=== PATIENT | female | born 1945 | race Caucasian/White ===

== ENCOUNTER → 2016-06-28 | Outpatient (CLI) | payer MEDICARE, OTHER | LOC: MW.CHIM 08:00 | PROVIDERS: ATTEND Internal Medicine | DX: R07.89 Other chest pain (principal); I10 Essential (primary) hypertension; E11.9 Type 2 diabetes mellitus without complications; E78.4 Other hyperlipidemia | CPT/HCPCS: G0463 ==

== ENCOUNTER → 2016-07-19 | Outpatient (CLI) | payer MEDICARE, OTHER ==
[2016-07-19 10:22] LABS: CHLORIDE,CL 106 mmol/L (98-110); SODIUM,NA 144 mmol/L (136-146)
--- NOTE | 2016-07-19 12:20 | CR ---
EXAMINATION: Two-view chest (PA and Lateral views). HISTORY: Pleurodynia FINDINGS: The trachea is midline. The cardiomediastinal silhouette is within normal limits. No pulmonary infil trates, effusions or pneumothorax. Mild chronic interstitial prominence. Mild degenerative changes within the thoracic spine. IMPRESSION: No acute cardiopulmonary process.
== END ==
LOC: MW.CHIM 09:23
PROVIDERS: ATTEND Internal Medicine
DX: R07.81 Pleurodynia (principal); I10 Essential (primary) hypertension; E11.9 Type 2 diabetes mellitus without complications; Z85.528 Personal history of other malignant neoplasm of kidney; E11.65 Type 2 diabetes mellitus with hyperglycemia; C64.9 Malignant neoplasm of unspecified kidney, except renal pelvis; F41.9 Anxiety disorder, unspecified
CPT/HCPCS: 36415; 71020; 71020-26; 80053; 83036; 85025; 88104; 99215

== ENCOUNTER → 2016-08-20 | Outpatient (CLI) | payer MEDICARE, OTHER ==
--- NOTE | 2016-08-22 08:38 | BHI ---
SERVICE DATE: 08/21/2016 PATIENT #: [id number] #: NOT DICTATED IDENTIFICATION: Jayleen is a 71-year-old female, who is here today for evaluation. She is referred to me by Dr. Kumar. CURRENT MEDICATIONS: Paxil 20 mg a day, trazodone 50 mg at bedtime, lorazepam 0.5 mg t.i.d. p.r.n. She rarely uses this, in the last 2 or 3 months she has used it twice. ALLERGIES: She has allergies to Augmentin and latex. CHIEF COMPLAINT: "I don't wanna get up." HISTORY OF PRESENT ILLNESS: Jayleen states that she has been gradually getting more and more depressed, there has been a series of very big stressors in her life. Her granddaughter was murdered in June. Her 91-year-old mom lives with her and so most of Jayleen's time is taking care of her mom and so she does not get out of the house much. She has 1 sister who has stage IV lung cancer, so that is another stressor on her. Her mood has been down. She has been on the Paxil for about 20 years and she just does not feel that it is really doing much anymore. Symptoms she significantly endorses, no energy, cannot concentrate, sleeps too much, feels hopeless, sadness, less enjoyment of life, feels like a failure, cries, loss of interest in her social activities, disappointed in herself, unsteady feelings, thoughts about dying, fear of going crazy or losing control, fear of being embarrassed or humiliated, fears of speaking in public, afraid of choking in public, hand trembling in the presence of others, fears of speaking in any social situations, persistent ideas, she cannot get out of her mind, recurrent thoughts, socially withdrawn, thoughts about how her life has changed permanently, outbursts of irritability, muscle tension, aches, and pains, restlessness, tires very easily. She said she feels trapped at home. Her mom does not get around very well and mom has dementia. She has no interest in cooking or cleaning and then she feels very guilty for feeling that way. She said this really started after she retired in April of 2015, but increased in severity after her granddaughter was murdered in June. Mornings and early afternoons are the worst time of her day. She does not really identify anything that seems to help. Her PHQ-9 score is 13. She does deny suicidal or homicidal ideation. PAST PSYCHIATRIC HISTORY: She saw Dr. Gomes after her divorce, I think in 1984. She said that was a very stressful time for her. She has not been on any other medications or has ever been hospitalized or has ever had a suicide attempt. SOCIAL HISTORY: Born in [place], raised primarily in [place] by her parents. Dad in 1970. She has 2 sisters, who are younger than her. She is a registered nurse. She was and in 1984. She has 2 sons, who are grown. She retired from her job at [employer] here in April of 2015. She cares for her mom, who has dementia. FAMILY HISTORY: She said the only thing she can identify in the family that runs is some anxiety, people are worriers. CHEMICAL USAGE HISTORY: She has never had trouble with alcohol or drugs. She said rarely she may have 1 drink. MEDICAL HISTORY: Her primary care provider is Dr. Kumar. She has had a few surgeries in her life. She has had a cholecystectomy and nephrectomy in 2005. Hysterectomy and uterine suspension. REVIEW OF SYSTEMS: ALLERGIES AND IMMUNE: The only thing she has allergies to is latex and Augmentin. CARDIOVASCULAR: She has hypertension. RESPIRATORY: She denies any problems. EARS, NOSE, OR THROAT: She denies any problems. EYES: She does wear corrective lenses. GASTROINTESTINAL: She has hypercholesterolemia. GENITOURINARY: She denies any problems. MUSCULOSKELETAL: She does have some arthritis and she takes Tylenol, which really does not do much of anything. She also states that she was told recently that she has some very mild mitral regurgitation. NEUROLOGICAL: She has restless legs syndrome and history of headaches. ENDOCRINE: She has diabetes and hypothyroidism years ago, but currently has diabetes. INTEGUMENTARY: Denies any problems. HEMATOLOGY: Denies problems. CONSTITUTIONAL: She denies any recent illnesses or fevers. Her last A1c was 8.1. MEDICATIONS: Other medications besides her Paxil and trazodone include amlodipine, baby aspirin, atorvastatin, glimepiride, Lantus insulin, ropinirole, tramadol which she uses very rarely, Victoza. PHYSICAL EXAMINATION: VITAL SIGNS: Blood pressure is 124/76, heart rate 95, respirations 18, temperature is 97.5, height 62 inches, weight is 182 pounds. GENERAL APPEARANCE: Jayleen is a very pleasant lady. She is well developed, well nourished, well groomed woman, who appears her stated age. Her muscle strength and tone appears equal bilaterally. Gait and station are normal. PSYCHIATRIC: Speech is clear and appropriate, coherent. Thought processes are logical. I do not see any pressured speech or tangential speech. Associations are intact. She denies any hallucinations. I do not see any delusions. Affect is flat. Her mood is depressed. Insight and judgment appear intact. Eye contact is good. MENTAL STATUS EXAM: She is alert and oriented x3. Recent and remote memory appear intact. Attention span appears to be good. Language is good. Fund of knowledge is good for her developmental age. DIAGNOSES: [place] I: Recurrent depression. Current episode moderate, F33.1; anxiety, F41.8. [place] II: No diagnosis. [place] III: She has several medical problems including diabetes, hypertension, hypercholesterolemia, restless legs syndrome, headaches. [place] IV: Stressors. Big stressors have been socially shut in with taking care of her mother and the of her granddaughter. [place] V: Current Global Assessment of Functioning score 65. TREATMENT PLAN: Jayleen has been on the Paxil for a long time now, so we discussed our various options. We could try to go up on the Paxil or we could get rid of it and try something new. She feels like she would like to try something new. She just has not had any benefit whatsoever with the Paxil. So, I am going to wean her off the Paxil. She will drop down to 10 mg a day for the next 5 days and try to go down to 5 mg a day for 5 days, and then just discontinue it. At the same time here, I am going to have her start Pristiq 25 mg a day. We discussed side effects and things that she should expect or may experience with the starting of the Pristiq. We also discussed the genetic testing and she is very much interested in that. I am going to see her back in about 3 to 4 weeks. If she has any problems before that, I encouraged her to call. /[id number]
== END ==
LOC: MW.CHIM 11:53
PROVIDERS: ATTEND Internal Medicine
DX: E11.9 Type 2 diabetes mellitus without complications (principal); E78.5 Hyperlipidemia, unspecified; E11.65 Type 2 diabetes mellitus with hyperglycemia; I10 Essential (primary) hypertension; F41.9 Anxiety disorder, unspecified
CPT/HCPCS: 36415; 83036; 99214

== ENCOUNTER → 2016-08-21 | Outpatient (CLI) | payer MEDICARE, OTHER | PROVIDERS: ATTEND Nurse Practitioner Family | DX: F33.1 Major depressive disorder, recurrent, moderate (principal); F41.8 Other specified anxiety disorders | CPT/HCPCS: 90792 ==

== ENCOUNTER → 2016-08-27 | Outpatient (CLI) | payer MEDICARE, OTHER ==
--- NOTE | 2016-08-28 10:15 | CR ---
EXAMINATION: Right knee HISTORY: Pain COMPARISON: None TECHNIQUE: 4 views FINDINGS/IMPRESSION: There is no acute osseous abnormality, dislocation, or fracture identified. Bon e mineralization and joint spaces appear normal. No soft tissue swelling or joint effusion.
== END ==
LOC: MW.CHORTHO 08:01
PROVIDERS: ATTEND Orthopaedic Surgery
DX: M25.561 Pain in right knee (principal)
CPT/HCPCS: 73564-26-RT; 73564-RT; G0463

== ENCOUNTER → 2016-09-03 | Outpatient (CLI) | payer MEDICARE, OTHER ==
--- NOTE | 2016-09-03 14:53 | MR ---
EXAMINATION: MRI of the right knee HISTORY: Pain COMPARISON: None TECHNIQUE: Multiplanar and multisequence images obtained of the right knee without contrast. FINDINGS: The visualized quadriceps and patellar tendons appear normal. The ACL and the PCL are inta ct. The medial and lateral collateral ligament complexes are normal. The medial and lateral menisci are normal. There is moderate articular cartilage thinning within the patellofemoral compartment wit h mild subchondral edema. There is also mild articular cartilage thinning within the medial compartm ent. There is a trace joint effusion and Henning's cyst. No suspicious bone marrow signal changes iden tified. The popliteal tendon appears normal. Otherwise no abnormalities noted within the popliteal fossa. IMPRESSION: 1. Moderate patellofemoral and mild medial compartment chondromalacia.
--- NOTE | 2016-09-04 16:20 | BTN ---
SERVICE DATE: 09/04/2016 PATIENT #: [id number] #: NOT DICTATED IDENTIFICATION: Sudha is a 71-year-old female, who is here today for a followup. I last saw her about 2 weeks ago. CURRENT MEDICATIONS: Pristiq 50 mg a day. ALLERGIES: She has allergies to Augmentin and latex. CHIEF COMPLAINT: "I am doing okay." HISTORY OF PRESENT ILLNESS: I saw Sudha about 2 weeks ago for some significant depressive symptoms and some grieving symptoms. She had been on Paxil for quite a while, but it had quit working I think quite a few months ago so we stopped the Paxil and started her on the Pristiq 50 mg a day. She said she is tolerating it. She said she has a little bit of stomach upset, but not bad. She thinks she is doing okay. Her PHQ-9 score is 11. RUBIO-7 score is 10. One of her big stressors has been her granddaughter was murdered in June by an ex-boyfriend and she said she got a word yesterday that they planned a tree in her memory and she said so it kind of brought things up again and it was a little bit tough for her, but she said she is doing okay. She is pretty much housebound, because she takes care of her mom and she is a primary caregiver. Her mom does not get around to well. REVIEW OF SYSTEMS: Sudha has diabetes and she also has elevated cholesterol and hypertension. PHYSICAL EXAMINATION: VITAL SIGNS: Weight is 181.2, height is 62 inches, temp is 97.3, heart rate is 85, respirations 20, and blood pressure 137/78. GENERAL APPEARANCE: Sudha is very well groomed, and a very pleasant lady. She appears her age. Muscle strength and tone appear equal bilaterally. Gait and station are normal. Speech is clear and appropriate. She is soft spoken. Thought processes are logical. I do not see any pressured speech. I do not see any tangential speech. I do not see any delusions. She denies hallucinations. Her mood is okay and her affect seems a little brighter today. Insight and judgment, I think, are very good. MENTAL STATUS EXAM: She is alert and oriented x3. Recent and remote memory appear intact. Attention span appears within normal limits. Language is good and fund of knowledge appears adequate for developmental age. DIAGNOSES: [place] I: Major depression, recurrent, current episode, mild to moderate, F33.0; and anxiety, F41.8. [place] II: No diagnosis. [place] III: She has diabetes, hypertension, and hyperlipidemia. [place] IV: Stressors, granddaughter's is probably one of the biggest stressors on Pat right now. [place] V: Current Global Assessment of Functioning score 68. TREATMENT PLAN: She has only been on the Pristiq 50 mg not even quite two weeks so I want her to continue on that for at least another 2 weeks. She is going to get the [employer] testing done. I think that is a good idea. So she will get the testing done then I want her to reschedule with me in about 3 weeks. We will do the conference call with the researcher and we will follow up with her medications at that time. If she has any problems before that, I encouraged her to call. /[id number]
== END ==
LOC: MW.MRI 12:21
PROVIDERS: ATTEND Orthopaedic Surgery
DX: M25.561 Pain in right knee (principal); M22.41 Chondromalacia patellae, right knee
CPT/HCPCS: 73721-26-RT; 73721-RT

== ENCOUNTER → 2016-09-05 | Outpatient (CLI) | payer MEDICARE, OTHER | LOC: MW.CHORTHO 08:00 | PROVIDERS: ATTEND Orthopaedic Surgery | DX: M17.11 Unilateral primary osteoarthritis, right knee (principal); M71.21 Synovial cyst of popliteal space [Baker], right knee | CPT/HCPCS: G0463 ==

== ENCOUNTER 2017-12-09 12:05 | Emergency (ER) | payer MEDICARE, OTHER ==
[2017-12-09 12:35] VITALS: BP 151/82
[2017-12-09] MEDS ORDERED: traMADol 50 MG Tab PO ONE (12:36)
--- NOTE | 2017-12-09 13:47 | EDM.PDOC ---
ED HPI GENERAL MEDICAL PROBLEM - General Chief Complaint: Head Injury Stated Complaint: FALL Time Seen by Provider: 12/09/17 12:12 Source of Information: Reports: Patient History Limitations: Reports: No Limitations - History of Present Illness INITIAL COMMENTS - FREE TEXT/NARRATIVE: HISTORY AND PHYSICAL: History of present illness: Patient is a 72-year-old female who presents to the emergency room today with complaints of right sided facial pain after fall. She states she was in her garage doing some boxes when she tripped and fell landing on the cement floor. She denies any loss of consciousness. Does have bruising around the right orbit. Any neck, back, trunk or extremity pain. Review of systems: As per history of present illness and below otherwise all systems reviewed and negative. Past medical history: As per history of present illness and as reviewed below otherwise noncontributory. Surgical history: As per history of present illness and as reviewed below otherwise noncontributory. Social history: No reported history of drug or alcohol abuse. Family history: As per history of present illness and as reviewed below otherwise noncontributory. Physical exam: General: Well-developed and well nourished 9-year-old female. Alert and oriented. Nontoxic appearing and in no acute distress. HEENT: Soft tissue swelling around the right eye with bruising, normocephalic, pupils equal and reactive bilaterally, negative for conjunctival pallor or scleral icterus, no intraoccular intrapment, cardinal walsh of gaze intact, mucous membranes moist, throat clear, neck supple, nontender, trachea midline. No drooling or trismus noted. No meningeal signs Lungs: Clear to auscultation, breath sounds equal bilaterally, chest nontender. Heart: S1S2, regular rate and rhythm without overt murmur Abdomen: Soft, nondistended, nontender. Negative for masses or hepatosplenomegaly. Negative for costovertebral tenderness. Pelvis: Stable nontender. Genitourinary: Deferred. Rectal: Deferred. Skin: Swelling and bruising noted around the right eye, not affecting the globe. Otherwise skin is intact, warm, dry. No lesions or rashes noted. Extremities: Moves all per self without difficulty or deficets, ambulatory into the ED without complaints, negative for cords or calf pain. Neurovascular unremarkable. C-Spine/Back: No pinpoint vertebral tenderness upon palpation. No crepitus, step -offs or obvious deformities. Patient is fully ambulatory into the emergency room with an even and steady gait. She denies any urinary or fecal incontinence. She is able to walk on heels and toes without difficulty. Denies any numbness or tingling to her distal extremities. Neuro: Awake, alert, oriented. Cranial nerves II through XII unremarkable. Cerebellum unremarkable. Motor and sensory unremarkable throughout. Exam nonfocal. Notes: CT of the maxillofacial shows a right orbital fracture with a 4?5 millimeter defect. The right ocular globe is intact. Right periorbital edema. Dr Trivedi, ENT in [facility], was contacted at this case. He is aware of the CT findings and the patient presentation. He states he'll see the patient on Friday and since the patient has a amoxicillin allergy he would like her placed on a Z-Declan. We'll give her Mil[place] for pain management. We discussed supportive care measures at home. Signs and symptoms that would prompt her to return to the emergency room were reviewed and discussed. Both patient and son at the bedside voice understanding and are agreeable to plan of care. Denies any further questions or concerns at this time. Diagnostics: CT, maxillofacial CT Therapeutics: Tramadol Prescription: Janak Blum (#30) Impression: Orbital Fracture, Right Head Injury Plan: 1. Please take your antibiotic as directed 2. Avoid blowing your nose or any activities that can increase pressure in your head 3. Tylenol and/or ibuprofen as needed for pain management. [place] has been provided for moderate to severe pain. This medication does cause drowsiness so do not take it will driving her needing to be functioning outside of the house. 4. Dr Trivedi, Ear Nose & Throat Specialist in [place] has agreed to see you. Appointment is Friday (December 12) at 12:15pm. Return to the ED as needed and as discussed. Definitive disposition and diagnosis as appropriate pending reevaluation and review of above. Onset: Today Duration: Minutes: Location: Reports: Face Right eye Pain Score (Numeric/FACES): 8 - Related Data Allergies Allergy/AdvReac Type Severity Reaction Status Date / Time latex Allergy rashes Verified 04/03/16 17:54 potassium clavulanate Allergy Headache Verified 04/03/16 17:54 [From Augmentin] amoxicillin trihydrate AdvReac Headache Verified 04/03/16 17:54 [From Augmentin] Home Meds: Home Meds PARoxetine [Paxil] 40 mg PO BEDTIME 09/09/13 [History] rOPINIRole HCl [Requip] 1 mg PO BEDTIME 09/09/13 [History] Aspirin 81 mg PO DAILY 06/03/15 [History] Insulin Aspart [NovoLOG] 0 units SQ ASDIRECTED 06/03/15 [History] Insulin Glarg,Human.Rec.Analog [LantUS Solostar] 55 units SQ BEDTIME 06/03/15 [ History] Liraglutide [Victoza] 1.8 mg SQ BEDTIME 06/03/15 [History] atorvaSTATin [Lipitor] 40 mg PO BEDTIME 06/03/15 [History] Ascorbic Acid/Bioflavonoids [Vit C-Bioflavonoids SA] 1,000 mg PO DAILY 07/11/15 [History] Glimepiride 4 mg PO DAILY 04/03/16 [History] amLODIPine Besylate/Benazepril [Lotrel 10-20 mg Capsule] 1 each PO DAILY [History] traZODone 50 mg PO BEDTIME 04/03/16 [History] Past Medical History HEENT History: Reports: Allergic Rhinitis, Glaucoma, Impaired Vision, Macular Degeneration Other HEENT History: wears glasses Cardiovascular History: Reports: Heart Murmur, High Cholesterol, Hypertension Respiratory History: Reports: None Gastrointestinal History: Reports: GERD Genitourinary History: Reports: Renal Calculus Other Genitourinary History: right radical nephrectomy 2005 due to renal cell carcinoma. Same year before that she had stone removal on the left side (that is how asymptomatic kidney cancer was discovered) ASSISTIVE TECHNOLOGY TRAINER History: Reports: Other ASSISTIVE TECHNOLOGY TRAINER History: uterine suspension Musculoskeletal History: Reports: Fracture, Osteoarthritis, Other (See Below) Other Musculoskeletal History: hx of restless leg syndrome, arthritis in hands and wrists,fx of right elbow,both ankles,right foot, surgery to repair muscles in left foot. painful right shoulder? rotator cuff Neurological History: Reports: None Psychiatric History: Reports: Anxiety, Depression Endocrine/Metabolic History: Reports: Diabetes, Type II, Obesity/BMI 30+ Hematologic History: Reports: None Immunologic History: Reports: None Oncologic (Cancer) History: Reports: Renal Dermatologic History: Reports: Other (See Below) Other Dermatologic History: occas gets a pimple like rash on face and back - Infectious Disease History Infectious Disease History: Reports: Chicken Pox, Mononucleosis - Past Surgical History Head Surgeries/Procedures: Reports: None Respiratory Surgical History: Reports: None GI Surgical History: Reports: Appendectomy, Cholecystectomy Female Surgical History: Reports: Section, Hysterectomy, Kidney stone extraction, Nephrectomy, Other (See Below) Neurological Surgical History: Reports: None Oncologic Surgical History: Reports: Other (See Below) Social & Family History - Family History Family Medical History: Noncontributory Cardiac: Reports: Heart Failure Endocrine/Metabolic: Reports: Diabetes, type II Oncologic: Reports: Colon, Lung - Tobacco Use Smoking Status *Q: Never Smoker Second Hand Smoke Exposure: No - Caffeine Use Caffeine Use: Reports: Coffee - Recreational Drug Use Recreational Drug Use: Yes Drug Use in Last 12 Months: Yes Recreational Drug Type: Reports: Marijuana/Hashish Recreational Drug Use Frequency: Rarely ED ROS GENERAL - Review of Systems Review Of Systems: ROS reveals no pertinent complaints other than HPI. ED EXAM, HEAD INJURY - Physical Exam Exam: See Below (See dictation) Course - Vital Signs Last Recorded V/S: Last Vital Signs Temp 96.9 F 12/09/17 12:16 Pulse 90 12/09/17 12:16 Resp 17 12/09/17 12:16 BP 151/82 H 12/09/17 12:16 Pulse Ox 93 L 12/09/17 12:16 - Orders/Labs/Meds Meds: Medications Discontinued Medications Generic Name Dose Route Start Last Admin Trade Name Freq PRN Reason Stop Dose Admin Tramadol HCl 50 mg 12/09/17 12:36 12/09/17 12:43 Ultram PO 12/09/17 12:37 50 mg ONETIME ONE Administration Departure - Departure Time of Disposition: 14:04 Disposition: Home, Self-Care 01 Clinical Impression: Orbital fracture Qualifiers: Encounter type: initial encounter Fracture type: closed Qualified Code(s): S02.80XA - Fracture of other specified skull and facial bones, unspecified side , initial encounter for closed fracture Head injury Qualifiers: Encounter type: initial encounter Qualified Code(s): S09.90XA - Unspecified injury of head, initial encounter - Discharge Information Instructions: Orbital Floor Fracture Without Entrapment, Head Injury, Adult, [id number] Referrals: PCP,None [Primary Care Provider] - Forms: ED Department Discharge Additional Instructions: The following information is given to patients seen in the emergency department who are being discharged to home. This information is to outline your options for follow-up care. We provide all patients seen in our emergency department with a follow-up referral. The need for follow-up, as well as the timing and circumstances, are variable depending upon the specifics of your emergency department visit. If you don't have a primary care physician on staff, we will provide you with a referral. We always advise you to contact your personal physician following an emergency department visit to inform them of the circumstance of the visit and for follow-up with them and/or the need for any referrals to a consulting specialist. The emergency department will also refer you to a specialist when appropriate. This referral assures that you have the opportunity for follow-up care with a specialist. All of these measure are taken in an effort to provide you with optimal care, which includes your follow-up. Under all circumstances we always encourage you to contact your private physician who remains a resource for coordinating your care. When calling for follow-up care, please make the office aware that this follow-up is from your recent emergency room visit. If for any reason you are refused follow-up, please contact the [facility] Emergency Department at and asked to speak to the emergency department charge nurse. [facility] [address] [place] [id number]obe Trivedi (ENT) - 12/12/2017 @ 12:15pm [address] [phone] 1. Please take your antibiotic as directed 2. Avoid blowing your nose or any activities that can increase pressure in your head 3. Tylenol and/or ibuprofen as needed for pain management. [place] has been provided for moderate to severe pain. This medication does cause drowsiness so do not take it will driving her needing to be functioning outside of the house. 4. Dr Trivedi, Ear Nose & Throat Specialist in [place] has agreed to see you. Appointment is Friday (December 12) at 12:15pm. Return to the ED as needed and as discussed.
--- NOTE | 2017-12-09 13:54 | CT ---
EXAM DATE: 12/09/17 PATIENT'S AGE: 72 Patient: BOB ALONZO Facility: [place], [place] Site . Site : 1945 Study: CT Head WO CONT [id number]/[id number] 12:56:51 PM Ordering Physician: Doctor Rodriguez Final Report: INDICATION: Fall. Right periorbital swelling. TECHNIQUE: CT scan of the brain without contrast. FINDINGS: Brain: Mildly prominent ventricles and sulci. No intra or extra-axial hemorrhage. Midline ventricles no shift. No suspicious intracranial mass. Intracranial Vessels: Moderate diffuse atherosclerotic calcification. Bony calvarium: The calvarium is normal. Fluid in the right maxillary sinus with a hyper attenuating anterior component. Cortical irregularity of the anterior maxillary sinus suggesting possible right orbital floor fracture. Dense opacification in the right frontal sinus. IMPRESSION: 1. Mild cerebral volume loss but no acute hemorrhage or intracranial radiographic abnormality. Atherosclerotic vascular calcification. 2. Possible right orbital floor fracture. Possible blood in the right maxillary sinus. Periorbital soft tissue swelling. Consider additional evaluation with facial CT scan. 3. Dense opacification right frontal sinus possibly chronic. Please note that all CT scans at this facility use dose modulation, iterative reconstruction, and/or weight-based dosing when appropriate to reduce radiation dose to as low as reasonably achievable. Dictated by Roque Cyr MD @ Dec 09 2017 1:11PM (Electronic Signature) Report Signed by Proxy. [facility]
--- NOTE | 2017-12-09 13:55 | CT ---
EXAM DATE: 12/09/17 PATIENT'S AGE: 72 Patient: BOB ALONZO Facility: [place], [place] Site . Site : 1945 Study: CT Facial WO CONT [id number]/[id number] 1:01:13 PM Ordering Physician: Doctor Rodriguez Final Report: INDICATION: Right periorbital swelling and pain following trauma TECHNIQUE: CT maxillofacial without contrast. COMPARISON: None FINDINGS: Facial bones: The orbital floor fracture with a 4-5 millimeter defect. Orbits and globes: Unremarkable. Sinuses: Air-fluid level involving the right maxillary sinus present. The maxillary sinus mucosal thickening. Opacification right frontal sinus. Soft tissues: Right periorbital edema. IMPRESSION: Right orbital floor fracture with 4-5 millimeter defect. The right ocular globe is intact. Right periorbital edema. Opacification right frontal sinus. Mucosal thickening right sphenoid sinus. Probable air-fluid level right maxillary sinus. Dictated by Dalton Renee MD @ 12/09/2017 1:21:54 PM Dictated by: Dalton Renee MD @ 12/09/2017 13:22:01 (Electronic Signature) Report Signed by Proxy. VENESSA
== END 2017-12-09 14:04 | disposition home or self-care (01) ==
LOC: MW.ED 12:05
DX: S09.90XA Unspecified injury of head, initial encounter (principal); S02.81XA Fracture of other specified skull and facial bones, right side, initial encounter for closed fracture; I10 Essential (primary) hypertension; E11.9 Type 2 diabetes mellitus without complications; E66.9 Obesity, unspecified; Z91.040 Latex allergy status; Z88.1 Allergy status to other antibiotic agents; Z79.4 Long term (current) use of insulin; Z79.899 Other long term (current) drug therapy; W01.198A Fall on same level from slipping, tripping and stumbling with subsequent striking against other object, initial encounter
CPT/HCPCS: 70450; 70486; 99283; A9270

== ENCOUNTER 2017-12-16 19:53 | Emergency (ER) | payer MEDICARE, OTHER ==
--- NOTE | 2017-12-16 19:57 | EDM.PDOC ---
ED HPI GENERAL MEDICAL PROBLEM - General Stated Complaint: TWISTED LT ANKLE Time Seen by Provider: 12/16/17 19:57 Source of Information: Reports: Patient History Limitations: Reports: No Limitations - History of Present Illness INITIAL COMMENTS - FREE TEXT/NARRATIVE: HISTORY AND PHYSICAL: History of present illness: 72-year-old female presenting to emergency department for chief complaint of left ankle pain after "twisting" it with past medical history of type 2 diabetes , hypertension, and hyperlipidemia. Patient states that she was carrying some boxes into her house when she accidentally "rolled her ankle". She did fall but sustained no other significant injuries. She did not hit her head which did not lose consciousness. She denies any chest pain or shortness of breath prior to or after event. Patient is unsure whether she rolled her ankle in or out. She is having pain on the posterior aspect of the ankle as well as the left lateral aspect. She does report some mild swelling. She did not take anything for this. She does have a history of "weak ankles". States that she has broken both ankles before. States that she's had a previous fall on Friday which ended up with a orbital fracture. She did seek treatment for this. Her primary care physician is Dr. Kumar. She has not talked to him about her recent falls. She denies any changes in sensation but feels that her balance may be somewhat off. She does have some mild musculoskeletal chest pain from her previous fall where she landed on her chest and head. She currently denies any chest pain, palpitations, shortness of breath, syncopal episodes, or focal neurologic deficits. On exam patient has pain to the posterior aspect of the ankle as well as some mild swelling and tenderness to the lateral aspect of the lateral malleolus. Squeeze test is negative for Achilles rupture. Patient has no loss of range of motion, strength, or sensation. Review of systems: As per history of present illness and below otherwise all systems reviewed and negative. Past medical history: As per history of present illness and as reviewed below otherwise noncontributory. Surgical history: As per history of present illness and as reviewed below otherwise noncontributory. Social history: No reported history of drug or alcohol abuse. Family history: As per history of present illness and as reviewed below otherwise noncontributory. Physical exam: HEENT: There is mild ecchymosis to the right lower eye, normocephalic, pupils reactive, negative for conjunctival pallor or scleral icterus, mucous membranes moist, throat clear, neck supple, nontender, trachea midline. Lungs: Clear to auscultation, breath sounds equal bilaterally, chest nontender. Heart: S1S2, regular, negative for clicks, rubs, or JVD. Abdomen: Soft, nondistended, nontender. Negative for masses or hepatosplenomegaly. Negative for costovertebral tenderness. Pelvis: Stable nontender. Genitourinary: Deferred. Rectal: Deferred. Extremities: See above H&P, negative for cords or calf pain. Neurovascular unremarkable. Neuro: Awake, alert, oriented. Cranial nerves II through XII unremarkable. Cerebellum unremarkable. Motor and sensory unremarkable throughout. Exam nonfocal. Diagnostics: Left ankle x-ray Therapeutics: Ice Impression: Left ankle sprain Left Achilles tendinopathy Plan: Left ankle x-ray showed no acute osseous injuries or but there was some Achilles tendon thickening. Patient does state that she had a previous Achilles rupture. However secondary to the thickening this may be further evaluated in the future with MRI for tendinopathy. Secondary to the patient's recent falls and imbalance did get a prescription for a walker for her. I also instructed the patient to call her primary care provider Dr. Kumar tomorrow morning immediately to schedule appointment for her recent falls. She was also given an ankle brace in the emergency room. Patient was instructed to use RICE rest, ice , compression and elevation and ibuprofen for treatment. Definitive disposition and diagnosis as appropriate pending reevaluation and review of above. Left Ankle Pain Score (Numeric/FACES): 8 - Related Data Allergies Allergy/AdvReac Type Severity Reaction Status Date / Time latex Allergy rashes Verified 12/16/17 20:02 potassium clavulanate Allergy Headache Verified 12/16/17 20:02 [From Augmentin] amoxicillin trihydrate AdvReac Headache Verified 12/16/17 20:02 [From Augmentin] Home Meds: Home Meds PARoxetine [Paxil] 40 mg PO BEDTIME 09/09/13 [History] rOPINIRole HCl [Requip] 1 mg PO BEDTIME 09/09/13 [History] Aspirin 81 mg PO DAILY 06/03/15 [History] Insulin Aspart [NovoLOG] 0 units SQ ASDIRECTED 06/03/15 [History] Insulin Glarg,Human.Rec.Analog [LantUS Solostar] 55 units SQ BEDTIME 06/03/15 [ History] Liraglutide [Victoza] 1.8 mg SQ BEDTIME 06/03/15 [History] atorvaSTATin [Lipitor] 40 mg PO BEDTIME 06/03/15 [History] Ascorbic Acid/Bioflavonoids [Vit C-Bioflavonoids SA] 1,000 mg PO DAILY 07/11/15 [History] Glimepiride 4 mg PO DAILY 04/03/16 [History] amLODIPine Besylate/Benazepril [Lotrel 10-20 mg Capsule] 1 each PO DAILY [History] traZODone 50 mg PO BEDTIME 04/03/16 [History] Acetaminophen/HYDROcodone [[place] 325-5 MG] 325 mg PO DAILY PRN 12/16/17 [History ] Past Medical History HEENT History: Reports: Allergic Rhinitis, Glaucoma, Impaired Vision, Macular Degeneration Other HEENT History: wears glasses Cardiovascular History: Reports: Heart Murmur, High Cholesterol, Hypertension Respiratory History: Reports: None Gastrointestinal History: Reports: GERD Genitourinary History: Reports: Renal Calculus Other Genitourinary History: right radical nephrectomy 2005 due to renal cell carcinoma. Same year before that she had stone removal on the left side (that is how asymptomatic kidney cancer was discovered) BOX TENDER History: Reports: Other BOX TENDER History: uterine suspension Musculoskeletal History: Reports: Fracture, Osteoarthritis, Other (See Below) Other Musculoskeletal History: hx of restless leg syndrome, arthritis in hands and wrists,fx of right elbow,both ankles,right foot, surgery to repair muscles in left foot. painful right shoulder? rotator cuff Neurological History: Reports: None Psychiatric History: Reports: Anxiety, Depression Endocrine/Metabolic History: Reports: Diabetes, Type II, Obesity/BMI 30+ Hematologic History: Reports: None Immunologic History: Reports: None Oncologic (Cancer) History: Reports: Renal Dermatologic History: Reports: Other (See Below) Other Dermatologic History: occas gets a pimple like rash on face and back - Infectious Disease History Infectious Disease History: Reports: Chicken Pox, Mononucleosis - Past Surgical History Head Surgeries/Procedures: Reports: None Respiratory Surgical History: Reports: None GI Surgical History: Reports: Appendectomy, Cholecystectomy Female Surgical History: Reports: Section, Hysterectomy, Kidney stone extraction, Nephrectomy, Other (See Below) Neurological Surgical History: Reports: None Oncologic Surgical History: Reports: Other (See Below) Social & Family History - Family History Family Medical History: Noncontributory Cardiac: Reports: Heart Failure Endocrine/Metabolic: Reports: Diabetes, type II Oncologic: Reports: Colon, Lung - Caffeine Use Caffeine Use: Reports: Coffee ED ROS GENERAL - Review of Systems Review Of Systems: ROS reveals no pertinent complaints other than HPI. ED EXAM, GENERAL - Physical Exam Exam: See Below Course - Vital Signs Last Recorded V/S: Last Vital Signs Temp 97.6 F 12/16/17 20:05 Pulse 97 12/16/17 20:05 Resp 16 12/16/17 20:05 BP 138/71 12/16/17 20:05 Pulse Ox 94 L 12/16/17 20:05 - Orders/Labs/Meds Orders: Active Orders 24 hr Category Date Time Status Ankle Min 3V Lt [CR] Stat Exams 12/16/17 20:13 Taken Departure - Departure Time of Disposition: 20:56 Disposition: Home, Self-Care 01 Condition: Good Clinical Impression: Tendinopathy Left ankle sprain Qualifiers: Encounter type: initial encounter Involved ligament of ankle: unspecified ligament Qualified Code(s): S93.402A - Sprain of unspecified ligament of left ankle, initial encounter - Discharge Information Additional Instructions: My general discharge The following information is given to patients seen in the emergency department who are being discharged to home. This information is to outline your options for follow-up care. We provide all patients seen in our emergency department with a follow-up referral. The need for follow-up, as well as the timing and circumstances, are variable depending upon the specifics of your emergency department visit. If you don't have a primary care physician on staff, we will provide you with a referral. We always advise you to contact your personal physician following an emergency department visit to inform them of the circumstance of the visit and for follow-up with them and/or the need for any referrals to a consulting specialist. The emergency department will also refer you to a specialist when appropriate. This referral assures that you have the opportunity for follow-up care with a specialist. All of these measure are taken in an effort to provide you with optimal care, which includes your follow-up. Under all circumstances we always encourage you to contact your private physician who remains a resource for coordinating your care. When calling for follow-up care, please make the office aware that this follow-up is from your recent emergency room visit. If for any reason you are refused follow-up, please contact the [facility] Emergency Department at and asked to speak to the emergency department charge nurse. [facility] [address] [place] [id number] As we discussed please call tomorrow and schedule an appointment with your primary care provider Dr. xie. Use walker for your recent imbalance. Use rest, ice, compression, and elevation for left ankle sprain. May also use Motrin and Tylenol for pain and inflammation. Return to emergency department if any new or worsening symptoms. - My Orders Last 24 Hours: My Active Orders 12/16/17 20:13 Ankle Min 3V Lt [CR] Stat - Assessment/Plan Last 24 Hours: My Active Orders 12/16/17 20:13 Ankle Min 3V Lt [CR] Stat
[2017-12-16 20:10] VITALS: BP 138/71
--- NOTE | 2017-12-17 12:51 | CR ---
EXAM DATE: 12/16/17 PATIENT'S AGE: 72 Patient: BOB ALONZO Facility: [place], [place] Site . Site : 1945 Study: XRay Extremity Left ANKLE [id number]/28/2018 8:30:45 PM Ordering Physician: Sampson Lynn Final Report: INDICATION: Trauma. Pain to left ankle. TECHNIQUE: Ankle radiograph 3 views left COMPARISON: None FINDINGS: Bone: No acute fractures or aggressive bone lesions are identified. Moderate diffuse osteopenia is noted. Joint: The ankle mortise joint and the visualized hindfoot joints are unremarkable in appearance. No significant ankle effusion is seen. Soft tissue: The Achilles` tendon appears thickened. No radiopaque foreign bodies are seen. IMPRESSION: 1. No acute osseous injuries or abnormalities are noted. 2. The Achilles` tendon appears thickened. Assessment with MRI may be helpful to exclude tendinosis. Dictated by: Zac Norton MD @ 12/16/2017 20:43:00 (Electronic Signature) Report Signed by Proxy. VENESSA
== END 2017-12-16 21:12 | disposition home or self-care (01) ==
LOC: MW.ED 19:53
DX: S93.402A Sprain of unspecified ligament of left ankle, initial encounter (principal); M76.62 Achilles tendinitis, left leg; E11.9 Type 2 diabetes mellitus without complications; E78.5 Hyperlipidemia, unspecified; I10 Essential (primary) hypertension; E78.00 Pure hypercholesterolemia, unspecified; Z91.040 Latex allergy status; Z88.8 Allergy status to other drugs, medicaments and biological substances; Z88.1 Allergy status to other antibiotic agents; Z79.4 Long term (current) use of insulin; Z79.899 Other long term (current) drug therapy; Z79.82 Long term (current) use of aspirin; X50.9XXA Other and unspecified overexertion or strenuous movements or postures, initial encounter
CPT/HCPCS: 73610-26-LT; 73610-LT; 99283

== ENCOUNTER 2021-07-09 16:25 | Emergency (ER) | payer MEDICARE, OTHER ==
[2021-07-09 19:35] VITALS: BP 117/60; PULSE 70
[2021-07-09] MEDS ORDERED: Lidocaine 5% 700 MG Patch TOP ONE (19:43)
== END 2021-07-09 20:01 | disposition home or self-care (01) ==
LOC: MW.ED 16:25
DX: S90.32XA Contusion of left foot, initial encounter (principal); E78.00 Pure hypercholesterolemia, unspecified; I10 Essential (primary) hypertension; E11.9 Type 2 diabetes mellitus without complications; E66.9 Obesity, unspecified; K21.9 Gastro-esophageal reflux disease without esophagitis; Z91.040 Latex allergy status; Z88.0 Allergy status to penicillin; Z88.8 Allergy status to other drugs, medicaments and biological substances; Z79.82 Long term (current) use of aspirin; Z79.4 Long term (current) use of insulin; Z79.899 Other long term (current) drug therapy; Z68.34 Body mass index [BMI] 34.0-34.9, adult; X50.1XXA Overexertion from prolonged static or awkward postures, initial encounter
CPT/HCPCS: 73630; 99283; A9270

== ENCOUNTER 2024-01-09 07:43 | Day surgery (SDC) | payer MEDICARE, OTHER ==
[2024-01-09] MEDS ORDERED: propofoL 50 ML ONE (08:07)
[2024-01-09] MEDS: Lactated Ringers 1,000 ML IV SCH (08:54)
[2024-01-09 11:39] VITALS: BP 108/64; PULSE 68
== END 2024-01-09 10:30 | disposition home or self-care (01) ==
LOC: MW.SDS 07:43
PROVIDERS: ATTEND Surgery
DX: Z12.11 Encounter for screening for malignant neoplasm of colon (principal); D12.6 Benign neoplasm of colon, unspecified; F32.A Depression, unspecified; I10 Essential (primary) hypertension; E11.9 Type 2 diabetes mellitus without complications; E66.9 Obesity, unspecified; Z88.8 Allergy status to other drugs, medicaments and biological substances; Z91.040 Latex allergy status; Z91.018 Allergy to other foods; Z79.899 Other long term (current) drug therapy; Z68.32 Body mass index [BMI] 32.0-32.9, adult; Z79.4 Long term (current) use of insulin
CPT/HCPCS: 45380; 45385; J2704; J7120; 00811; 88305; 99100

== ENCOUNTER 2024-03-23 14:38 | Emergency (ER) | payer MEDICARE, OTHER ==
[2024-03-23 15:21] VITALS: BP 161/78; PULSE 86
== END 2024-03-23 16:21 | disposition home or self-care (01) ==
LOC: MW.ED 14:38
DX: S90.32XA Contusion of left foot, initial encounter (principal); I10 Essential (primary) hypertension; E78.00 Pure hypercholesterolemia, unspecified; E11.9 Type 2 diabetes mellitus without complications; E66.9 Obesity, unspecified; K21.9 Gastro-esophageal reflux disease without esophagitis; Z79.899 Other long term (current) drug therapy; Z91.040 Latex allergy status; Z91.018 Allergy to other foods; Z88.8 Allergy status to other drugs, medicaments and biological substances; Z88.0 Allergy status to penicillin; Z91.041 Radiographic dye allergy status; Z68.33 Body mass index [BMI] 33.0-33.9, adult; W18.30XA Fall on same level, unspecified, initial encounter
CPT/HCPCS: 73630-26-LT; 73630-LT; 99283

== ENCOUNTER 2024-03-29 07:01 | Emergency (ER) | payer MEDICARE, OTHER ==
[2024-03-29] MEDS ORDERED: Sodium Chloride 0.9% 2.5 ML Syringe FLUSH PRN (07:11)
[2024-03-29] MEDS ORDERED: Sodium Chloride 0.9% 10 ML Syringe FLUSH PRN (07:11)
[2024-03-29] MEDS: Sodium Chloride 0.9% 1,000 ML IV STA (07:33)
[2024-03-29] MEDS: Ondansetron 4 MG/2 ML SDV IVPUSH ONE (07:33)
[2024-03-29 07:52] LABS: BASOPHILS ABSOLUTE AUTO 0.02 K/uL (0.00-0.20); BASOPHILS PERCENT AUTO 0.2 % (0.0-1.0); EOSINOPHILS ABSOLUTE AUTO 0.16 K/uL (0.00-0.45); EOSINOPHILS PERCENT AUTO 1.3 % (0.0-6.0); HEMATOCRIT 48.7 % (37.0-47.0); HEMOGLOBIN 15.9 g/dL (12.0-16.0); IMMATURE GRAN ABSOLUTE AUTO 0.02 K/uL (0.00-0.05); IMMATURE GRAN PERCENT AUTO 0.2 % (0.0-0.4); LYMPHOCYTES ABSOLUTE AUTO 1.39 K/uL (1.00-4.80); LYMPHOCYTES PERCENT AUTO 11.1 % (24.0-44.0); MEAN CORPUSCULAR HEMOGLOBIN 29.1 pg (28.0-32.0); MEAN CORPUSCULAR HGB CONC 32.6 g/dL (32.0-36.0); MEAN PLATELET VOLUME 11.1 fL (9.4-12.3); MONOCYTES ABSOLUTE AUTO 0.63 K/uL (0.00-0.80); NEUTROPHILS ABSOLUTE AUTO 10.28 K/uL (1.80-7.70); NEUTROPHILS PERCENT AUTO 82.2 % (41.0-71.0); PLATELET COUNT,PLT 168 K/uL (150-400); RED BLOOD CELL COUNT 5.47 M/uL (4.10-5.30)
[2024-03-29 08:19] LABS: ALBUMIN 3.8 g/dL (3.4-5.0); BILIRUBIN TOTAL 0.5 mg/dL (0.2-1.0); CALCIUM 10.2 mg/dL (8.5-10.1); CARBON DIOXIDE,CO2 29.3 mmol/L (21.0-32.0); CREATININE 1.1 mg/dL (0.6-1.0); EST CRCL DRUG DOSING (CG) 38.54 mL/min; POTASSIUM,K 3.7 mmol/L (3.5-5.1); PROTEIN TOTAL,TP 7.7 g/dL (6.4-8.2)
[2024-03-29 08:27] LABS: LACTIC ACID 2.9 mmol/L (0.4-2.0)
[2024-03-29 09:57] LABS: BILIRUBIN,URINE NEGATIVE (NEGATIVE); COLOR,URINE YELLOW; GLUCOSE,URINE NEGATIVE (NEGATIVE); KETONES,URINE NEGATIVE (NEGATIVE); LEUKOCYTE ESTERASE,URINE NEGATIVE (NEGATIVE); NITRITE,URINE NEGATIVE (NEGATIVE); OCCULT BLOOD,URINE NEGATIVE (NEGATIVE); PROTEIN,URINE TRACE mg/dL (NEGATIVE); UROBILINOGEN,URINE 0.2 EU/dL (<2.0)
[2024-03-29 09:59] LABS: APPEARANCE,URINE HAZY
[2024-03-29 10:05] LABS: EPITHELIAL CELLS,URINE FEW (NONE-FEW); RBC,URINE 0-2 (0-2/HPF); WBC,URINE 0-3 (0-5/HPF)
[2024-03-29 10:06] LABS: BACTERIA,URINE FEW (NEGATIVE)
[2024-03-30 07:43] VITALS: BP 138/68; PULSE 71
== END 2024-03-29 10:48 | disposition home or self-care (01) ==
LOC: MW.ED 07:01
DX: N20.0 Calculus of kidney (principal); E11.649 Type 2 diabetes mellitus with hypoglycemia without coma; R19.7 Diarrhea, unspecified; R74.02 Elevation of levels of lactic acid dehydrogenase [LDH]; E78.00 Pure hypercholesterolemia, unspecified; I10 Essential (primary) hypertension; K21.9 Gastro-esophageal reflux disease without esophagitis; E66.9 Obesity, unspecified; Z90.49 Acquired absence of other specified parts of digestive tract; Z90.710 Acquired absence of both cervix and uterus; Z79.4 Long term (current) use of insulin; Z79.899 Other long term (current) drug therapy; Z91.040 Latex allergy status; Z91.018 Allergy to other foods; Z88.8 Allergy status to other drugs, medicaments and biological substances; Z88.0 Allergy status to penicillin
CPT/HCPCS: 36415; 71045; 74177; 80053; 81001; 83605; 83690; 84484; 85025; 87428; 93005; 96361; 96374; 99285; J2405; J7030; 93010

== ENCOUNTER 2024-07-22 04:30 | Emergency (ER) | payer MEDICARE, OTHER ==
[2024-07-22] MEDS: Ondansetron 4 MG Tab.DIS PO ONE (05:10)
[2024-07-22 05:14] LABS: BILIRUBIN,URINE NEGATIVE (NEGATIVE); COLOR,URINE YELLOW; GLUCOSE,URINE NEGATIVE (NEGATIVE); KETONES,URINE NEGATIVE (NEGATIVE); LEUKOCYTE ESTERASE,URINE SMALL (NEGATIVE); NITRITE,URINE POSITIVE (NEGATIVE); OCCULT BLOOD,URINE LARGE (NEGATIVE); PROTEIN,URINE 100 mg/dL (NEGATIVE)
[2024-07-22 05:16] LABS: APPEARANCE,URINE SLT CLOUDY
[2024-07-22] MEDS: Sodium Chloride 0.9% 1,000 ML IV SCH (05:25)
[2024-07-22 05:35] LABS: BASOPHILS ABSOLUTE AUTO 0.03 K/uL (0.00-0.20); BASOPHILS PERCENT AUTO 0.5 % (0.0-1.0); EOSINOPHILS ABSOLUTE AUTO 0.05 K/uL (0.00-0.45); EOSINOPHILS PERCENT AUTO 0.8 % (0.0-6.0); HEMATOCRIT 41.2 % (37.0-47.0); HEMOGLOBIN 13.3 g/dL (12.0-16.0); IMMATURE GRAN ABSOLUTE AUTO 0.01 K/uL (0.00-0.05); IMMATURE GRAN PERCENT AUTO 0.2 % (0.0-0.4); LYMPHOCYTES ABSOLUTE AUTO 0.31 K/uL (1.00-4.80); LYMPHOCYTES PERCENT AUTO 4.7 % (24.0-44.0); MEAN CORPUSCULAR HEMOGLOBIN 28.8 pg (28.0-32.0); MEAN CORPUSCULAR HGB CONC 32.3 g/dL (32.0-36.0); MEAN CORPUSCULAR VOLUME 89.2 fL (83.0-99.0); MEAN PLATELET VOLUME 11.3 fL (9.4-12.3); MONOCYTES ABSOLUTE AUTO 0.36 K/uL (0.00-0.80); MONOCYTES PERCENT AUTO 5.5 % (0.0-8.0); NEUTROPHILS PERCENT AUTO 88.3 % (41.0-71.0); PLATELET COUNT,PLT 115 K/uL (150-400); RED BLOOD CELL COUNT 4.62 M/uL (4.10-5.30); WHITE BLOOD CELL COUNT,WBC 6.56 K/uL (3.9-11.3)
[2024-07-22 05:49] LABS: CARBON DIOXIDE,CO2 23.9 mmol/L (21.0-32.0); EST CRCL DRUG DOSING (CG) 37.26 mL/min; POTASSIUM,K 4.3 mmol/L (3.5-5.1)
[2024-07-22 05:50] LABS: BACTERIA,URINE FEW (NEGATIVE); EPITHELIAL CELLS,URINE OCCASIONAL (NONE-FEW); RBC,URINE 75-100 (0-2/HPF)
[2024-07-22] MEDS: cefTRIAXone 2 GM in Sodium Chloride 0.9% 50 ML IV ONE (06:37)
[2024-07-22 07:18] VITALS: BP 128/62; PULSE 80
== END 2024-07-22 07:18 | disposition home or self-care (01) ==
LOC: MW.ED 04:30
DX: N39.0 Urinary tract infection, site not specified (principal); I10 Essential (primary) hypertension; E78.00 Pure hypercholesterolemia, unspecified; E66.9 Obesity, unspecified; E11.9 Type 2 diabetes mellitus without complications; Z88.8 Allergy status to other drugs, medicaments and biological substances; Z91.018 Allergy to other foods; Z91.040 Latex allergy status; Z75.3 Unavailability and inaccessibility of health-care facilities; Z79.4 Long term (current) use of insulin; Z79.899 Other long term (current) drug therapy; Z90.49 Acquired absence of other specified parts of digestive tract; Z90.710 Acquired absence of both cervix and uterus; Z68.32 Body mass index [BMI] 32.0-32.9, adult
CPT/HCPCS: 36415; 74176; 80048; 81001; 85025; 87086; 96361; 96365; 99284; A9270; J0696; J7030

== ENCOUNTER 2024-07-24 15:05 | Inpatient (IN) | payer MEDICARE, OTHER ==
[2024-07-24] MEDS ORDERED: Sodium Chloride 0.9% 2.5 ML Syringe FLUSH PRN (15:35)
[2024-07-24] MEDS ORDERED: Sodium Chloride 0.9% 10 ML Syringe FLUSH PRN (15:35)
[2024-07-24] MEDS: Sodium Chloride 0.9% 1,000 ML IV STA ×3 (15:44→20:37)
[2024-07-24] MEDS: Ondansetron 4 MG/2 ML SDV IVPUSH STA (15:44)
[2024-07-24] MEDS: Acetaminophen 500 MG Tab PO STA (15:48)
[2024-07-24] MEDS: Cefepime 2 GM in Sodium Chloride 0.9% 50 ML IV STA (15:55)
[2024-07-24 16:08] LABS: A/G RATIO 0.8 (0.9-1.6); ALBUMIN 2.8 g/dL (3.4-5.0); BILIRUBIN TOTAL 0.6 mg/dL (0.2-1.0); CALCIUM 9.4 mg/dL (8.5-10.1); CARBON DIOXIDE,CO2 26.6 mmol/L (21.0-32.0); CREATININE 1.4 mg/dL (0.6-1.0); EST CRCL DRUG DOSING (CG) 26.62 mL/min; MAGNESIUM 1.9 mg/dL (1.8-2.4); POTASSIUM,K 4.4 mmol/L (3.5-5.1); PROTEIN TOTAL,TP 6.5 g/dL (6.4-8.2)
[2024-07-24 16:12] LABS: BASE EXCESS VENOUS -1.3 (-2.0-3.0); PH,VENOUS 7.38 (7.32-7.43)
[2024-07-24 16:18] LABS: BASOPHILS ABSOLUTE AUTO 0.01 K/uL (0.00-0.20); BASOPHILS PERCENT AUTO 0.2 % (0.0-1.0); EOSINOPHILS ABSOLUTE AUTO 0.08 K/uL (0.00-0.45); EOSINOPHILS PERCENT AUTO 1.2 % (0.0-6.0); HEMATOCRIT 38.5 % (37.0-47.0); HEMOGLOBIN 12.7 g/dL (12.0-16.0); IMMATURE GRAN ABSOLUTE AUTO 0.02 K/uL (0.00-0.05); IMMATURE GRAN PERCENT AUTO 0.3 % (0.0-0.4); LYMPHOCYTES PERCENT AUTO 1.5 % (24.0-44.0); MEAN CORPUSCULAR VOLUME 87.9 fL (83.0-99.0); MEAN PLATELET VOLUME 11.5 fL (9.4-12.3); MONOCYTES ABSOLUTE AUTO 0.17 K/uL (0.00-0.80); MONOCYTES PERCENT AUTO 2.6 % (0.0-8.0); NEUTROPHILS ABSOLUTE AUTO 6.16 K/uL (1.80-7.70); NEUTROPHILS PERCENT AUTO 94.2 % (41.0-71.0); RED BLOOD CELL COUNT 4.38 M/uL (4.10-5.30); WHITE BLOOD CELL COUNT,WBC 6.54 K/uL (3.9-11.3)
[2024-07-24 16:28] LABS: PLATELET COUNT,PLT 87 K/uL (150-400)
[2024-07-24 16:35] LABS: LACTIC ACID 2.3 mmol/L (0.4-2.0)
[2024-07-24] MEDS: Iopamidol 755 MG/ML 500 ML Multipack Bottle IVPUSH STA (18:16)
[2024-07-24] MEDS: Ondansetron 4 MG/2 ML SDV IVPUSH ONE (19:04)
[2024-07-24 19:26] LABS: APPEARANCE,URINE CLOUDY; COLOR,URINE BROWN; GLUCOSE,URINE 100 mg/dL (NEGATIVE); KETONES,URINE TRACE mg/dL (NEGATIVE); LEUKOCYTE ESTERASE,URINE NEGATIVE (NEGATIVE); NITRITE,URINE POSITIVE (NEGATIVE); OCCULT BLOOD,URINE LARGE (NEGATIVE); PH,URINE 6.5 (5.0-8.0); PROTEIN,URINE 100 mg/dL (NEGATIVE)
[2024-07-24 19:27] LABS: BILIRUBIN,URINE SMALL (NEGATIVE)
[2024-07-24 19:39] LABS: BACTERIA,URINE FEW (NEGATIVE); EPITHELIAL CELLS,URINE FEW (NONE-FEW); RBC,URINE TOO NUMEROUS TO CT (0-2/HPF)
[2024-07-24] MEDS ORDERED: Cefepime 2 GM in Sodium Chloride 0.9% 50 ML IV SCH (23:45)
[2024-07-25] MEDS: Sodium Chloride 0.9% 1,000 ML IV SCH (00:20)
[2024-07-25] MEDS ORDERED: Glucagon,Human Recombinant 1 MG Vial IM PRN (00:57)
[2024-07-25] MEDS ORDERED: 50% Dextrose in Water 50 ML Syringe IVPUSH PRN (00:57)
[2024-07-25] MEDS: PARoxetine 20 MG Tab PO SCH (01:30)
[2024-07-25] MEDS: rOPINIRole 1 MG Tab PO SCH (01:31)
[2024-07-25] MEDS: traMADol 50 MG Tab PO PRN (01:33)
[2024-07-25] MEDS: Ondansetron 4 MG Tab.DIS PO PRN (01:34)
[2024-07-25 01:37] LABS: CORONAVIRUS COVID-19 NAA NEGATIVE (NEGATIVE); INFLUENZA A NAA NEGATIVE (NEGATIVE); INFLUENZA B NAA NEGATIVE (NEGATIVE); RESPIRATORY SYNCYTIAL VIR NAA NEGATIVE (NEGATIVE)
[2024-07-25] MEDS: Cefepime 1 GM in Sodium Chloride 0.9% 50 ML IV SCH (04:00)
[2024-07-25 06:39] LABS: BASOPHILS ABSOLUTE AUTO 0.01 K/uL (0.00-0.20); BASOPHILS PERCENT AUTO 0.3 % (0.0-1.0); EOSINOPHILS ABSOLUTE AUTO 0.07 K/uL (0.00-0.45); EOSINOPHILS PERCENT AUTO 2.2 % (0.0-6.0); HEMATOCRIT 32.3 % (37.0-47.0); HEMOGLOBIN 10.8 g/dL (12.0-16.0); IMMATURE GRAN ABSOLUTE AUTO 0.01 K/uL (0.00-0.05); IMMATURE GRAN PERCENT AUTO 0.3 % (0.0-0.4); LYMPHOCYTES ABSOLUTE AUTO 0.36 K/uL (1.00-4.80); LYMPHOCYTES PERCENT AUTO 11.3 % (24.0-44.0); MEAN CORPUSCULAR HEMOGLOBIN 29.4 pg (28.0-32.0); MEAN CORPUSCULAR HGB CONC 33.4 g/dL (32.0-36.0); MONOCYTES ABSOLUTE AUTO 0.12 K/uL (0.00-0.80); MONOCYTES PERCENT AUTO 3.8 % (0.0-8.0); NEUTROPHILS ABSOLUTE AUTO 2.61 K/uL (1.80-7.70); NEUTROPHILS PERCENT AUTO 82.1 % (41.0-71.0); PLATELET COUNT,PLT 77 K/uL (150-400); RED BLOOD CELL COUNT 3.67 M/uL (4.10-5.30); WHITE BLOOD CELL COUNT,WBC 3.18 K/uL (3.9-11.3)
[2024-07-25 06:58] LABS: CALCIUM 7.9 mg/dL (8.5-10.1); CARBON DIOXIDE,CO2 21.4 mmol/L (21.0-32.0); CREATININE 1.1 mg/dL (0.6-1.0); EST CRCL DRUG DOSING (CG) 33.87 mL/min
[2024-07-25] MEDS: Acetaminophen 325 MG Tab PO PRN (08:32)
[2024-07-25] MEDS ORDERED: amLODIPine 5 MG Tab PO SCH (09:00)
[2024-07-25] MEDS ORDERED: Lisinopril 10 MG Tab PO SCH (09:00)
[2024-07-25] MEDS: Insulin Aspart 100 Units/ML 3 ML Pen SUBCUT SCH (10:17)
[2024-07-25] MEDS: Polyethylene Glycol 3350 Powder 17 GM Packet PO SCH (10:17)
[2024-07-25] MEDS: Enoxaparin 40 MG/0.4 ML Syringe SUBCUT SCH (14:36)
[2024-07-25] MEDS: Pantoprazole 40 MG Tab.CR PO SCH (21:39)
[2024-07-25] MEDS: Lisinopril 10 MG Tab PO SCH (21:39)
[2024-07-25] MEDS: amLODIPine 5 MG Tab PO SCH (21:39)
[2024-07-25] MEDS: atorvaSTATin 20 MG Tab PO SCH (21:39)
[2024-07-26] MEDS: Albuterol/Ipratropium 3.0-0.5 MG/3 ML Neb Soln NEB STA (01:30)
[2024-07-26] MEDS: Sodium Chloride 0.9% 500 ML IV ONE (03:54)
[2024-07-26 06:16] LABS: BASOPHILS ABSOLUTE AUTO 0.01 K/uL (0.00-0.20); BASOPHILS PERCENT AUTO 0.2 % (0.0-1.0); EOSINOPHILS ABSOLUTE AUTO 0.05 K/uL (0.00-0.45); HEMATOCRIT 32.2 % (37.0-47.0); HEMOGLOBIN 10.6 g/dL (12.0-16.0); IMMATURE GRAN ABSOLUTE AUTO 0.02 K/uL (0.00-0.05); IMMATURE GRAN PERCENT AUTO 0.4 % (0.0-0.4); LYMPHOCYTES ABSOLUTE AUTO 0.94 K/uL (1.00-4.80); MEAN CORPUSCULAR HEMOGLOBIN 28.7 pg (28.0-32.0); MEAN CORPUSCULAR HGB CONC 32.9 g/dL (32.0-36.0); MEAN CORPUSCULAR VOLUME 87.3 fL (83.0-99.0); MEAN PLATELET VOLUME 11.7 fL (9.4-12.3); MONOCYTES ABSOLUTE AUTO 0.22 K/uL (0.00-0.80); MONOCYTES PERCENT AUTO 4.4 % (0.0-8.0); NEUTROPHILS ABSOLUTE AUTO 3.71 K/uL (1.80-7.70); PLATELET COUNT,PLT 79 K/uL (150-400); RED BLOOD CELL COUNT 3.69 M/uL (4.10-5.30); WHITE BLOOD CELL COUNT,WBC 4.95 K/uL (3.9-11.3)
[2024-07-26 06:35] LABS: A/G RATIO 0.7 (0.9-1.6); ALBUMIN 2.1 g/dL (3.4-5.0); BILIRUBIN TOTAL 0.5 mg/dL (0.2-1.0); CALCIUM 7.4 mg/dL (8.5-10.1); CARBON DIOXIDE,CO2 20.4 mmol/L (21.0-32.0); CREATININE 0.9 mg/dL (0.6-1.0); EST CRCL DRUG DOSING (CG) 41.4 mL/min; MAGNESIUM 1.8 mg/dL (1.8-2.4); PROTEIN TOTAL,TP 5.2 g/dL (6.4-8.2)
[2024-07-26 07:54] LABS: APPEARANCE,URINE CLOUDY; BILIRUBIN,URINE NEGATIVE (NEGATIVE); COLOR,URINE BROWN; GLUCOSE,URINE NEGATIVE (NEGATIVE); KETONES,URINE TRACE mg/dL (NEGATIVE); LEUKOCYTE ESTERASE,URINE NEGATIVE (NEGATIVE); NITRITE,URINE NEGATIVE (NEGATIVE); OCCULT BLOOD,URINE LARGE (NEGATIVE); PROTEIN,URINE 100 mg/dL (NEGATIVE); UROBILINOGEN,URINE 0.2 EU/dL (<2.0)
[2024-07-26 08:09] LABS: BACTERIA,URINE FEW (NEGATIVE); EPITHELIAL CELLS,URINE NOT SEEN (NONE-FEW); RBC,URINE TOO NUMEROUS TO CT (0-2/HPF)
[2024-07-26] MEDS: Sennosides/Docusate Sodium 50-8.6 MG Tab PO SCH (10:58)
[2024-07-26] MEDS ORDERED: 50% Dextrose in Water 50 ML Syringe IVPUSH PRN (11:21)
[2024-07-26] MEDS ORDERED: Glucagon,Human Recombinant 1 MG Vial IM PRN (11:21)
[2024-07-26] MEDS: Sodium Chloride 0.9% 1,000 ML IV SCH (13:01)
[2024-07-26] MEDS: Polyethylene Glycol 3350 Powder 17 GM Packet PO SCH (21:21)
[2024-07-26] MEDS: Insulin Glargine,Human Rec. Analog 100 Units/ML 3 ML Pen SUBCUT SCH (21:22)
[2024-07-26] MEDS: PARoxetine 20 MG Tab PO SCH (21:22)
[2024-07-27] MEDS: Albuterol/Ipratropium 3.0-0.5 MG/3 ML Neb Soln NEB PRN (00:55)
[2024-07-27 07:59] LABS: BASOPHILS ABSOLUTE AUTO 0.02 K/uL (0.00-0.20); BASOPHILS PERCENT AUTO 0.4 % (0.0-1.0); EOSINOPHILS PERCENT AUTO 2.2 % (0.0-6.0); HEMATOCRIT 31.5 % (37.0-47.0); HEMOGLOBIN 10.4 g/dL (12.0-16.0); IMMATURE GRAN ABSOLUTE AUTO 0.02 K/uL (0.00-0.05); IMMATURE GRAN PERCENT AUTO 0.4 % (0.0-0.4); LYMPHOCYTES ABSOLUTE AUTO 1.23 K/uL (1.00-4.80); MEAN CORPUSCULAR HEMOGLOBIN 28.7 pg (28.0-32.0); MEAN PLATELET VOLUME 11.3 fL (9.4-12.3); MONOCYTES ABSOLUTE AUTO 0.36 K/uL (0.00-0.80); MONOCYTES PERCENT AUTO 7.9 % (0.0-8.0); NEUTROPHILS ABSOLUTE AUTO 2.82 K/uL (1.80-7.70); NEUTROPHILS PERCENT AUTO 62.1 % (41.0-71.0); PLATELET COUNT,PLT 89 K/uL (150-400); RED BLOOD CELL COUNT 3.62 M/uL (4.10-5.30); WHITE BLOOD CELL COUNT,WBC 4.55 K/uL (3.9-11.3)
[2024-07-27 08:44] LABS: A/G RATIO 0.7 (0.9-1.6); ALBUMIN 2.3 g/dL (3.4-5.0); BILIRUBIN TOTAL 0.5 mg/dL (0.2-1.0); CALCIUM 8.3 mg/dL (8.5-10.1); CARBON DIOXIDE,CO2 21.3 mmol/L (21.0-32.0); CREATININE 0.9 mg/dL (0.6-1.0); EST CRCL DRUG DOSING (CG) 41.4 mL/min; POTASSIUM,K 3.9 mmol/L (3.5-5.1); PROTEIN TOTAL,TP 5.5 g/dL (6.4-8.2)
[2024-07-27] MEDS ORDERED: Polyethylene Glycol 3350 Powder 17 GM Packet PO PRN (09:51)
[2024-07-27] MEDS: Furosemide 20 MG/2 ML VIAL IVPUSH ONE (10:21)
[2024-07-27] MEDS: Azithromycin 500 MG in Sodium Chloride 0.9% 250 ML IV SCH (10:25)
[2024-07-27 13:13] LABS: BASE EXCESS ARTERIAL -4.4 (-2.0-3.0); BICARBONATE,ARTERIAL 20 mEq/L (21-28); PCO2 ARTERIAL 34 mmHG (35-45); PO2 ARTERIAL 62 mmHG (83-108)
[2024-07-28 05:54] LABS: BASOPHILS ABSOLUTE AUTO 0.01 K/uL (0.00-0.20); BASOPHILS PERCENT AUTO 0.2 % (0.0-1.0); EOSINOPHILS ABSOLUTE AUTO 0.17 K/uL (0.00-0.45); EOSINOPHILS PERCENT AUTO 3.7 % (0.0-6.0); HEMATOCRIT 31.1 % (37.0-47.0); HEMOGLOBIN 10.2 g/dL (12.0-16.0); IMMATURE GRAN ABSOLUTE AUTO 0.01 K/uL (0.00-0.05); IMMATURE GRAN PERCENT AUTO 0.2 % (0.0-0.4); LYMPHOCYTES ABSOLUTE AUTO 1.34 K/uL (1.00-4.80); LYMPHOCYTES PERCENT AUTO 29.3 % (24.0-44.0); MEAN CORPUSCULAR HEMOGLOBIN 28.7 pg (28.0-32.0); MEAN CORPUSCULAR HGB CONC 32.8 g/dL (32.0-36.0); MEAN CORPUSCULAR VOLUME 87.4 fL (83.0-99.0); MEAN PLATELET VOLUME 10.9 fL (9.4-12.3); MONOCYTES ABSOLUTE AUTO 0.39 K/uL (0.00-0.80); MONOCYTES PERCENT AUTO 8.5 % (0.0-8.0); NEUTROPHILS ABSOLUTE AUTO 2.65 K/uL (1.80-7.70); NEUTROPHILS PERCENT AUTO 58.1 % (41.0-71.0); PLATELET COUNT,PLT 99 K/uL (150-400); RED BLOOD CELL COUNT 3.56 M/uL (4.10-5.30); WHITE BLOOD CELL COUNT,WBC 4.57 K/uL (3.9-11.3)
[2024-07-28 06:24] LABS: A/G RATIO 0.7 (0.9-1.6); ALBUMIN 2.4 g/dL (3.4-5.0); BILIRUBIN TOTAL 0.6 mg/dL (0.2-1.0); CALCIUM 8.8 mg/dL (8.5-10.1); CARBON DIOXIDE,CO2 24.4 mmol/L (21.0-32.0); EST CRCL DRUG DOSING (CG) 37.26 mL/min; MAGNESIUM 1.7 mg/dL (1.8-2.4); POTASSIUM,K 3.8 mmol/L (3.5-5.1); PROTEIN TOTAL,TP 5.8 g/dL (6.4-8.2)
[2024-07-28] MEDS: Magnesium Sulf/Wat 4 GM/100 mL 4 GM in Premix Bag 1 BAG IV ONE (07:50)
[2024-07-28] MEDS: Insulin Glargine,Human Rec. Analog 100 Units/ML 3 ML Pen SUBCUT SCH (09:05)
[2024-07-28] MEDS: Sennosides 8.6 MG Tab PO PRN (09:18)
[2024-07-28] MEDS: Furosemide 20 MG/2 ML VIAL IVPUSH ONE (10:13)
[2024-07-28] MEDS: Furosemide 20 MG/2 ML VIAL ONE (10:37)
[2024-07-29 06:01] LABS: BASOPHILS ABSOLUTE AUTO 0.04 K/uL (0.00-0.20); BASOPHILS PERCENT AUTO 0.8 % (0.0-1.0); EOSINOPHILS ABSOLUTE AUTO 0.38 K/uL (0.00-0.45); EOSINOPHILS PERCENT AUTO 7.3 % (0.0-6.0); HEMATOCRIT 30.3 % (37.0-47.0); IMMATURE GRAN ABSOLUTE AUTO 0.05 K/uL (0.00-0.05); LYMPHOCYTES ABSOLUTE AUTO 1.65 K/uL (1.00-4.80); LYMPHOCYTES PERCENT AUTO 31.7 % (24.0-44.0); MEAN CORPUSCULAR HEMOGLOBIN 28.6 pg (28.0-32.0); MEAN CORPUSCULAR VOLUME 86.6 fL (83.0-99.0); MEAN PLATELET VOLUME 10.7 fL (9.4-12.3); MONOCYTES ABSOLUTE AUTO 0.49 K/uL (0.00-0.80); MONOCYTES PERCENT AUTO 9.4 % (0.0-8.0); NEUTROPHILS PERCENT AUTO 49.8 % (41.0-71.0); PLATELET COUNT,PLT 116 K/uL (150-400); WHITE BLOOD CELL COUNT,WBC 5.21 K/uL (3.9-11.3)
[2024-07-29 06:28] LABS: A/G RATIO 0.7 (0.9-1.6); ALBUMIN 2.3 g/dL (3.4-5.0); BILIRUBIN TOTAL 0.5 mg/dL (0.2-1.0); CALCIUM 8.4 mg/dL (8.5-10.1); CARBON DIOXIDE,CO2 25.2 mmol/L (21.0-32.0); EST CRCL DRUG DOSING (CG) 37.26 mL/min; MAGNESIUM 2.1 mg/dL (1.8-2.4); POTASSIUM,K 3.5 mmol/L (3.5-5.1); PROTEIN TOTAL,TP 5.6 g/dL (6.4-8.2)
[2024-07-29] MEDS: Potassium Chloride 10% 20 MEQ/15 ML Soln 15 ML UD Cup PO SCH (09:18)
[2024-07-29] MEDS: Furosemide 20 MG/2 ML VIAL IVPUSH SCH (09:18)
[2024-07-29] MEDS: Sennosides/Docusate Sodium 50-8.6 MG Tab PO PRN (09:36)
[2024-07-29 16:48] VITALS: PULSE 72
[2024-07-29] MEDS: Insulin Glargine,Human Rec. Analog 100 Units/ML 3 ML Pen SUBCUT SCH (20:42)
[2024-07-30 06:15] LABS: BASOPHILS ABSOLUTE AUTO 0.05 K/uL (0.00-0.20); BASOPHILS PERCENT AUTO 0.9 % (0.0-1.0); EOSINOPHILS ABSOLUTE AUTO 0.28 K/uL (0.00-0.45); EOSINOPHILS PERCENT AUTO 4.8 % (0.0-6.0); HEMATOCRIT 33.1 % (37.0-47.0); HEMOGLOBIN 10.7 g/dL (12.0-16.0); IMMATURE GRAN ABSOLUTE AUTO 0.07 K/uL (0.00-0.05); IMMATURE GRAN PERCENT AUTO 1.2 % (0.0-0.4); LYMPHOCYTES PERCENT AUTO 32.9 % (24.0-44.0); MEAN CORPUSCULAR HEMOGLOBIN 28.3 pg (28.0-32.0); MEAN CORPUSCULAR HGB CONC 32.3 g/dL (32.0-36.0); MEAN CORPUSCULAR VOLUME 87.6 fL (83.0-99.0); MEAN PLATELET VOLUME 10.7 fL (9.4-12.3); MONOCYTES ABSOLUTE AUTO 0.43 K/uL (0.00-0.80); MONOCYTES PERCENT AUTO 7.4 % (0.0-8.0); NEUTROPHILS ABSOLUTE AUTO 3.05 K/uL (1.80-7.70); NEUTROPHILS PERCENT AUTO 52.8 % (41.0-71.0); PLATELET COUNT,PLT 117 K/uL (150-400); RED BLOOD CELL COUNT 3.78 M/uL (4.10-5.30); WHITE BLOOD CELL COUNT,WBC 5.78 K/uL (3.9-11.3)
[2024-07-30 06:40] LABS: A/G RATIO 0.7 (0.9-1.6); ALBUMIN 2.4 g/dL (3.4-5.0); BILIRUBIN TOTAL 0.4 mg/dL (0.2-1.0); CALCIUM 8.8 mg/dL (8.5-10.1); CARBON DIOXIDE,CO2 28.6 mmol/L (21.0-32.0); CREATININE 0.9 mg/dL (0.6-1.0); EST CRCL DRUG DOSING (CG) 41.4 mL/min; PROTEIN TOTAL,TP 5.8 g/dL (6.4-8.2)
[2024-07-30] MEDS: Insulin Glargine,Human Rec. Analog 100 Units/ML 3 ML Pen SUBCUT SCH (12:45)
[2024-07-30 16:25] VITALS: BP 154/67
[2024-07-30] MEDS ORDERED: Insulin Glargine,Human Rec. Analog 100 Units/ML 3 ML Pen SUBCUT SCH (21:00)
== END 2024-07-30 16:18 | disposition home health service (06) | DRG 689 ==
LOC: MW.ED 15:05 → INTOOBSV 20:49 → OBSVTOIN 20:49 → MW.MS 20:49 → UNDOADMOB 20:49 → OBSVTOIN 07-26 09:53 → MW.MS 07-26 09:53 → UNDODISIN 07-30 16:18
PROVIDERS: ADMIT Internal Medicine; ATTEND Internal Medicine
PROC: 4A033R1 Measurement of Arterial Saturation, Peripheral, Percutaneous Approach (ICD-10-PCS; principal; 2024-07-27)
DX: N39.0 Urinary tract infection, site not specified (principal); R10.13 Epigastric pain; R11.2 Nausea with vomiting, unspecified; R50.9 Fever, unspecified; R74.02 Elevation of levels of lactic acid dehydrogenase [LDH]; J18.9 Pneumonia, unspecified organism; Z46.6 Encounter for fitting and adjustment of urinary device; E87.20 Acidosis, unspecified; N17.9 Acute kidney failure, unspecified; Z66 Do not resuscitate; E11.9 Type 2 diabetes mellitus without complications; D69.6 Thrombocytopenia, unspecified; Z88.8 Allergy status to other drugs, medicaments and biological substances; H54.7 Unspecified visual loss; Z91.018 Allergy to other foods; E78.00 Pure hypercholesterolemia, unspecified; I10 Essential (primary) hypertension; K52.9 Noninfective gastroenteritis and colitis, unspecified; K21.9 Gastro-esophageal reflux disease without esophagitis; Z68.32 Body mass index [BMI] 32.0-32.9, adult; M19.90 Unspecified osteoarthritis, unspecified site; M81.0 Age-related osteoporosis without current pathological fracture; F41.9 Anxiety disorder, unspecified; F32.A Depression, unspecified; E66.9 Obesity, unspecified; K59.00 Constipation, unspecified; E11.649 Type 2 diabetes mellitus with hypoglycemia without coma; Z98.890 Other specified postprocedural states; Z85.528 Personal history of other malignant neoplasm of kidney; Z95.828 Presence of other vascular implants and grafts; Z90.49 Acquired absence of other specified parts of digestive tract; Z91.040 Latex allergy status; Z88.0 Allergy status to penicillin; Z79.4 Long term (current) use of insulin; Z79.899 Other long term (current) drug therapy; Z79.2 Long term (current) use of antibiotics; Z68.33 Body mass index [BMI] 33.0-33.9, adult; Z90.89 Acquired absence of other organs; Z90.710 Acquired absence of both cervix and uterus; Z98.1 Arthrodesis status
CPT/HCPCS: 0241U; 36415; 36600; 71045; 71046; 71275; 74177; 80048; 80053; 81001; 82803; 82947; 83605; 83690; 83735; 84484; 85025; 85610; 87040; 87086; 93005; 94640; 96361; 96372; 96374; 96375; 96376; 97162; 97530; 99285; 93010; 99222; 99231; 99232; 99239; A9270-GY; G0378; J0456; J0692; J1650; J1815-GY; J1940; J2405; J3475; J7030; J7040; J7050; Q9967

== ENCOUNTER 2024-08-22 21:48 | Emergency (ER) | payer MEDICARE, OTHER ==
[2024-08-22 22:07] LABS: BASOPHILS ABSOLUTE AUTO 0.04 K/uL (0.00-0.20); BASOPHILS PERCENT AUTO 0.4 % (0.0-1.0); EOSINOPHILS ABSOLUTE AUTO 0.08 K/uL (0.00-0.45); EOSINOPHILS PERCENT AUTO 0.9 % (0.0-6.0); HEMATOCRIT 35.9 % (37.0-47.0); HEMOGLOBIN 11.5 g/dL (12.0-16.0); IMMATURE GRAN ABSOLUTE AUTO 0.03 K/uL (0.00-0.05); IMMATURE GRAN PERCENT AUTO 0.3 % (0.0-0.4); LYMPHOCYTES ABSOLUTE AUTO 1.35 K/uL (1.00-4.80); LYMPHOCYTES PERCENT AUTO 14.5 % (24.0-44.0); MEAN CORPUSCULAR HEMOGLOBIN 28.5 pg (28.0-32.0); MEAN CORPUSCULAR VOLUME 88.9 fL (83.0-99.0); MEAN PLATELET VOLUME 10.4 fL (9.4-12.3); MONOCYTES ABSOLUTE AUTO 0.53 K/uL (0.00-0.80); MONOCYTES PERCENT AUTO 5.7 % (0.0-8.0); NEUTROPHILS ABSOLUTE AUTO 7.29 K/uL (1.80-7.70); NEUTROPHILS PERCENT AUTO 78.2 % (41.0-71.0); PLATELET COUNT,PLT 152 K/uL (150-400); RED BLOOD CELL COUNT 4.04 M/uL (4.10-5.30); WHITE BLOOD CELL COUNT,WBC 9.32 K/uL (3.9-11.3)
[2024-08-22 22:31] LABS: ALBUMIN 3.3 g/dL (3.4-5.0); BILIRUBIN TOTAL 0.4 mg/dL (0.2-1.0); CARBON DIOXIDE,CO2 25.4 mmol/L (21.0-32.0); CREATININE 0.9 mg/dL (0.6-1.0); EST CRCL DRUG DOSING (CG) 41.4 mL/min; PROTEIN TOTAL,TP 6.7 g/dL (6.4-8.2)
[2024-08-22] MEDS: droPERidol 2.5 MG/ML SDV IVPUSH ONE (22:46)
[2024-08-22] MEDS: Sodium Chloride 0.9% 1,000 ML IV ONE (22:54)
[2024-08-22] MEDS: Morphine 4 MG/ML Syringe IVPUSH PRN (23:04)
[2024-08-23 00:29] LABS: APPEARANCE,URINE CLEAR; BILIRUBIN,URINE NEGATIVE (NEGATIVE); COLOR,URINE YELLOW; GLUCOSE,URINE NEGATIVE (NEGATIVE); KETONES,URINE NEGATIVE (NEGATIVE); LEUKOCYTE ESTERASE,URINE NEGATIVE (NEGATIVE); NITRITE,URINE NEGATIVE (NEGATIVE); OCCULT BLOOD,URINE LARGE (NEGATIVE); PROTEIN,URINE NEGATIVE (NEGATIVE); UROBILINOGEN,URINE 0.2 EU/dL (<2.0)
[2024-08-23 00:36] LABS: BACTERIA,URINE FEW (NEGATIVE); EPITHELIAL CELLS,URINE RARE (NONE-FEW); MUCUS,URINE OCCASIONAL (NONE-MOD); WBC,URINE 0-2 (0-5/HPF)
[2024-08-23] MEDS: HYDROmorphone 0.5 MG/0.5 ML Syringe IVPUSH ONE (00:45)
[2024-08-23] MEDS: Ketorolac 30 MG/ML SDV IVPUSH ONE (00:45)
[2024-08-23] MEDS: Ondansetron 4 MG/2 ML SDV IVPUSH ONE (00:51)
[2024-08-23 00:57] VITALS: BP 155/76; PULSE 89
== END 2024-08-23 01:03 | disposition home or self-care (01) ==
LOC: MW.ED 21:48
DX: N20.0 Calculus of kidney (principal); N28.1 Cyst of kidney, acquired; Z87.448 Personal history of other diseases of urinary system; I10 Essential (primary) hypertension; E66.9 Obesity, unspecified; E78.00 Pure hypercholesterolemia, unspecified; E11.9 Type 2 diabetes mellitus without complications; Z90.49 Acquired absence of other specified parts of digestive tract; Z79.899 Other long term (current) drug therapy; Z79.4 Long term (current) use of insulin; Z88.0 Allergy status to penicillin; Z90.710 Acquired absence of both cervix and uterus; Z88.8 Allergy status to other drugs, medicaments and biological substances; Z91.048 Other nonmedicinal substance allergy status; Z91.040 Latex allergy status
CPT/HCPCS: 36415; 74176; 80053; 81001; 83605; 83690; 85025; 96361; 96374; 96375; 99284; J1790; J1885; J2270; J2405; J7030

== ENCOUNTER 2024-08-24 07:08 | Emergency (ER) | payer MEDICARE, OTHER ==
[2024-08-24] MEDS ORDERED: Sodium Chloride 0.9% 10 ML Syringe FLUSH PRN (07:43)
[2024-08-24] MEDS ORDERED: Sodium Chloride 0.9% 2.5 ML Syringe FLUSH PRN (07:43)
[2024-08-24] MEDS: Ondansetron 4 MG/2 ML SDV IVPUSH ONE (08:10)
[2024-08-24] MEDS: Phenazopyridine 200 MG Tab PO ONE (08:10)
[2024-08-24] MEDS: Ketorolac 30 MG/ML SDV IVPUSH ONE (08:11)
[2024-08-24] MEDS: Sodium Chloride 0.9% 1,000 ML IV SCH (08:11)
[2024-08-24 08:20] LABS: BASOPHILS ABSOLUTE AUTO 0.03 K/uL (0.00-0.20); BASOPHILS PERCENT AUTO 0.2 % (0.0-1.0); EOSINOPHILS ABSOLUTE AUTO 0.01 K/uL (0.00-0.45); EOSINOPHILS PERCENT AUTO 0.1 % (0.0-6.0); HEMATOCRIT 34.9 % (37.0-47.0); HEMOGLOBIN 11.1 g/dL (12.0-16.0); IMMATURE GRAN ABSOLUTE AUTO 0.04 K/uL (0.00-0.05); IMMATURE GRAN PERCENT AUTO 0.3 % (0.0-0.4); LYMPHOCYTES ABSOLUTE AUTO 0.83 K/uL (1.00-4.80); LYMPHOCYTES PERCENT AUTO 6.7 % (24.0-44.0); MEAN CORPUSCULAR HEMOGLOBIN 28.8 pg (28.0-32.0); MEAN CORPUSCULAR HGB CONC 31.8 g/dL (32.0-36.0); MEAN CORPUSCULAR VOLUME 90.4 fL (83.0-99.0); MEAN PLATELET VOLUME 10.4 fL (9.4-12.3); MONOCYTES ABSOLUTE AUTO 0.59 K/uL (0.00-0.80); MONOCYTES PERCENT AUTO 4.8 % (0.0-8.0); NEUTROPHILS ABSOLUTE AUTO 10.81 K/uL (1.80-7.70); NEUTROPHILS PERCENT AUTO 87.9 % (41.0-71.0); PLATELET COUNT,PLT 126 K/uL (150-400); RED BLOOD CELL COUNT 3.86 M/uL (4.10-5.30); WHITE BLOOD CELL COUNT,WBC 12.31 K/uL (3.9-11.3)
[2024-08-24 08:42] LABS: A/G RATIO 0.8 (0.9-1.6); ALBUMIN 2.8 g/dL (3.4-5.0); BILIRUBIN TOTAL 0.7 mg/dL (0.2-1.0); CALCIUM 8.9 mg/dL (8.5-10.1); CARBON DIOXIDE,CO2 26.7 mmol/L (21.0-32.0); EST CRCL DRUG DOSING (CG) 37.26 mL/min; POTASSIUM,K 3.8 mmol/L (3.5-5.1); PROTEIN TOTAL,TP 6.3 g/dL (6.4-8.2)
[2024-08-24 09:30] LABS: APPEARANCE,URINE CLEAR; BILIRUBIN,URINE NEGATIVE (NEGATIVE); COLOR,URINE YELLOW; GLUCOSE,URINE NEGATIVE (NEGATIVE); KETONES,URINE TRACE mg/dL (NEGATIVE); LEUKOCYTE ESTERASE,URINE NEGATIVE (NEGATIVE); NITRITE,URINE NEGATIVE (NEGATIVE); OCCULT BLOOD,URINE TRACE-INTACT (NEGATIVE); PROTEIN,URINE TRACE mg/dL (NEGATIVE); UROBILINOGEN,URINE 0.2 EU/dL (<2.0)
[2024-08-24 09:33] VITALS: PULSE 74
[2024-08-24 09:40] LABS: BACTERIA,URINE FEW (NEGATIVE); EPITHELIAL CELLS,URINE RARE (NONE-FEW); MUCUS,URINE LIGHT (NONE-MOD); RBC,URINE 0-1 (0-2/HPF); WBC,URINE 0-1 (0-5/HPF); YEAST,URINE RARE
[2024-08-24 10:27] VITALS: BP 129/67
== END 2024-08-24 10:28 | disposition home or self-care (01) ==
LOC: MW.ED 07:08
DX: R10.9 Unspecified abdominal pain (principal); I10 Essential (primary) hypertension; E78.00 Pure hypercholesterolemia, unspecified; E11.9 Type 2 diabetes mellitus without complications; E66.9 Obesity, unspecified; Z90.49 Acquired absence of other specified parts of digestive tract; Z90.710 Acquired absence of both cervix and uterus; Z79.4 Long term (current) use of insulin; Z79.899 Other long term (current) drug therapy; Z88.0 Allergy status to penicillin; Z88.8 Allergy status to other drugs, medicaments and biological substances; Z91.040 Latex allergy status
CPT/HCPCS: 36415; 80053; 81001; 83690; 85025; 96361; 96374; 96375; 99284; A9270; J1885; J2405; J7030

== ENCOUNTER 2024-08-25 12:21 | Emergency (ER) | payer MEDICARE, OTHER ==
[2024-08-25] MEDS ORDERED: Sodium Chloride 0.9% 10 ML Syringe FLUSH PRN (12:44)
[2024-08-25] MEDS ORDERED: Sodium Chloride 0.9% 2.5 ML Syringe FLUSH PRN (12:44)
[2024-08-25 13:28] LABS: APPEARANCE,URINE CLEAR; GLUCOSE,URINE 100 mg/dL (NEGATIVE); KETONES,URINE TRACE mg/dL (NEGATIVE); LEUKOCYTE ESTERASE,URINE TRACE (NEGATIVE); NITRITE,URINE POSITIVE (NEGATIVE); OCCULT BLOOD,URINE NEGATIVE (NEGATIVE); PROTEIN,URINE 100 mg/dL (NEGATIVE); UROBILINOGEN,URINE >=8.0 EU/dL (<2.0)
[2024-08-25 13:34] LABS: BILIRUBIN,URINE MODERATE (NEGATIVE); COLOR,URINE ORANGE
[2024-08-25 13:47] LABS: BACTERIA,URINE FEW (NEGATIVE); EPITHELIAL CELLS,URINE FEW (NONE-FEW); YEAST,URINE RARE
[2024-08-25 13:52] LABS: BASOPHILS ABSOLUTE AUTO 0.02 K/uL (0.00-0.20); BASOPHILS PERCENT AUTO 0.2 % (0.0-1.0); EOSINOPHILS ABSOLUTE AUTO 0.04 K/uL (0.00-0.45); EOSINOPHILS PERCENT AUTO 0.5 % (0.0-6.0); HEMATOCRIT 29.4 % (37.0-47.0); HEMOGLOBIN 9.5 g/dL (12.0-16.0); IMMATURE GRAN ABSOLUTE AUTO 0.02 K/uL (0.00-0.05); IMMATURE GRAN PERCENT AUTO 0.2 % (0.0-0.4); LYMPHOCYTES ABSOLUTE AUTO 0.43 K/uL (1.00-4.80); LYMPHOCYTES PERCENT AUTO 5.2 % (24.0-44.0); MEAN CORPUSCULAR HGB CONC 32.3 g/dL (32.0-36.0); MEAN CORPUSCULAR VOLUME 89.6 fL (83.0-99.0); MEAN PLATELET VOLUME 10.7 fL (9.4-12.3); MONOCYTES ABSOLUTE AUTO 0.27 K/uL (0.00-0.80); MONOCYTES PERCENT AUTO 3.3 % (0.0-8.0); NEUTROPHILS ABSOLUTE AUTO 7.47 K/uL (1.80-7.70); NEUTROPHILS PERCENT AUTO 90.6 % (41.0-71.0); PLATELET COUNT,PLT 121 K/uL (150-400); RED BLOOD CELL COUNT 3.28 M/uL (4.10-5.30); WHITE BLOOD CELL COUNT,WBC 8.25 K/uL (3.9-11.3)
[2024-08-25 14:13] LABS: A/G RATIO 0.7 (0.9-1.6); ALBUMIN 2.4 g/dL (3.4-5.0); BILIRUBIN TOTAL 0.7 mg/dL (0.2-1.0); CALCIUM 8.3 mg/dL (8.5-10.1); CARBON DIOXIDE,CO2 24.4 mmol/L (21.0-32.0); EST CRCL DRUG DOSING (CG) 37.26 mL/min; POTASSIUM,K 3.7 mmol/L (3.5-5.1)
[2024-08-25 14:23] LABS: CORONAVIRUS COVID-19 NAA NEGATIVE (NEGATIVE); INFLUENZA A NAA NEGATIVE (NEGATIVE); INFLUENZA B NAA NEGATIVE (NEGATIVE)
[2024-08-25 14:49] VITALS: BP 114/48; PULSE 75
[2024-08-25] MEDS: Doxycycline Monohydrate 100 MG Cap PO ONE (14:49)
== END 2024-08-25 14:51 | disposition home or self-care (01) ==
LOC: MW.ED 12:21
DX: J40 Bronchitis, not specified as acute or chronic (principal); R53.83 Other fatigue; I10 Essential (primary) hypertension; E78.00 Pure hypercholesterolemia, unspecified; E11.9 Type 2 diabetes mellitus without complications; Z91.040 Latex allergy status; Z88.8 Allergy status to other drugs, medicaments and biological substances; Z88.0 Allergy status to penicillin; Z79.899 Other long term (current) drug therapy; Z79.4 Long term (current) use of insulin
CPT/HCPCS: 0240U; 36415; 71045; 80053; 81001; 83690; 85025; 99285; A9270-GY